=== PATIENT | male | born 1995 | race Caucasian/White ===

== ENCOUNTER 2017-06-12 13:50 | Emergency (ER) | payer BC ==
[2017-06-12] MEDS ORDERED: ONDANSETRON 4 MG/2 ML VIAL IVP ONE (14:03)
[2017-06-12] MEDS ORDERED: NS 1,000 ML IV ONE (14:03)
--- NOTE | 2017-06-12 14:06 | EDPHY ---
H & P Stated Complaint: ALLERGIC REACTION Time Seen by Provider: 06/12/17 13:59 HPI/ROS: CHIEF COMPLAINT: Allergic reaction HISTORY OF PRESENT ILLNESS: The patient is a 22-year-old man who comes to the emergency department and says that he is having an allergic reaction. He states that he is allergic to nuts but he is not sure which kind. He has never been tested. He states that he just knows because he has had this type of reaction before. About 15 min ago he ate some vegan macaroni and immediately felt nauseous and had aches and pain throughout his whole body. No shortness of breath. No urticaria. No swelling. He does state that his eyes started watering. He took 3 tablets of Benadryl about 10 min ago and his coworkers brought him to the emergency department. REVIEW OF SYSTEMS: Constitutional: denies: chills, fever, recent illness, recent injury EENTM: denies: blurred vision, double vision, nose congestion Respiratory: denies: cough, shortness of breath Cardiac: denies: chest pain, irregular heart rate, lightheadedness, palpitations Gastrointestinal/Abdominal: See HPI Genitourinary: denies: dysuria, frequency, hematuria, pain Musculoskeletal: See HPI Skin: denies: lesions, rash, jaundice, bruising Neurological: denies: headache, numbness, paresthesia, tingling, dizziness, weakness Hematologic/Lymphatic: denies: blood clots, easy bleeding, easy bruising Immunologic/allergic: denies: HIV/AIDS, transplant EXAM: GENERAL: Well-appearing, well-nourished HEAD: Atraumatic, normocephalic. EYES: Pupils equal round and reactive to light, extraocular movements intact, sclera anicteric, conjunctiva are normal. ENT: TMs normal, nares patent, oropharynx clear without exudates. Moist mucous membranes. NECK: Normal range of motion, supple without lymphadenopathy or JVD. LUNGS: Breath sounds clear to auscultation bilaterally and equal. No wheezes rales or rhonchi. HEART: Regular rate and rhythm without murmurs, rubs or gallops. ABDOMEN: Soft, nontender, normoactive bowel sounds. No guarding, no rebound. No masses appreciated. BACK: No CVA tenderness, no spinal tenderness, step-offs or deformities EXTREMITIES: Normal range of motion, no pitting or edema. No clubbing or cyanosis. NEUROLOGICAL: Cranial nerves II through XII grossly intact. Normal speech, normal gait. 5/5 strength, normal movement in all extremities, normal sensation PSYCH: Normal mood, normal affect. SKIN: Warm, dry, normal turgor, no visible rashes or lesions. Source: Patient Exam Limitations: No limitations - Personal History Current Tetanus/Diphtheria Vaccine: Yes - Medical/Surgical History Hx Asthma: No Hx Chronic Respiratory Disease: No Hx Diabetes: No Hx Cardiac Disease: No Hx Renal Disease: No Hx Cirrhosis: No Hx Alcoholism: No Hx HIV/AIDS: No Hx Splenectomy or Spleen Trauma: No Other PMH: tonsils, hand - Family History Significant Family History: No pertinent family hx - Social History Smoking Status: Never smoked Alcohol Use: Sober Drug Use: None Constitutional: Initial Vital Signs Heart Rate 80 06/12/17 13:54 Respiratory Rate 14 06/12/17 13:54 Blood Pressure 123/77 H 06/12/17 13:54 O2 Sat (%) 99 06/12/17 13:54 O2 Delivery Mode Room Air Allergies/Adverse Reactions: tree nut [Nuts] Allergy (Verified 06/12/17 13:53) Home Medications: Medication Instructions Recorded Adderall 10 MG (*) 06/12/17 Ondansetron Odt [Zofran Odt 4 mg 4 mg PO Q4 PRN #20 tab 06/12/17 (RX)] Medical Decision Making ED Course/Re-evaluation: The patient is well appearing other than stating that he has itchy eyes and has vague complaints stating that his whole body hurts and that he feels nauseous. I will hydrate him and treat with Zofran and re-evaluate. No signs of allergic reaction objectively. 2:18 p.m. patient states he is feeling completely better and would like to leave now. I encouraged him to stay so we can observe him a little longer. 3:00 p.m. the patient continues to do well and is eager to go. Differential Diagnosis: Partial list of the Differential diagnosis considered include but were not limited to; anxiety, nausea, allergic reaction and although unlikely based on the history and physical exam, I also considered influenza, sepsis seizure. I discussed these differential diagnoses and the plan with the patient as well as the usual and expected course. The patient understands that the diagnosis is provisional and that in medicine we are not always correct and that further workup is often warranted. Usual and customary warnings were given. All of the patient's questions were answered. The patient was instructed to return to the emergency department should the symptoms at all worsen or return, otherwise to followup with the physician as we discussed. - Data Points Medications Given: Discontinued Medications Sodium Chloride (Ns) 1,000 mls @ 0 mls/hr IV EDNOW ONE; Wide Open PRN Reason: Protocol Stop: 06/12/17 14:04 Last Admin: 06/12/17 14:09 Dose: 1,000 mls Ondansetron HCl (Zofran) 4 mg IVP EDNOW ONE Stop: 06/12/17 14:04 Last Admin: 06/12/17 14:09 Dose: 4 mg Departure - Departure Disposition: Home, Routine, Self-Care Clinical Impression: Nausea Condition: Fair Instructions: Acute Nausea and Vomiting (ED) Referrals: Clayton Lucero DO [Doctor of Osteopathy] - As per Instructions Prescriptions: Ondansetron Odt [Zofran Odt 4 mg (RX)] 4 mg PO Q4 PRN #20 tab PRN Reason: Nausea & Vomiting
[2017-06-12 14:46] VITALS: BP 145/95
== END 2017-06-12 14:40 | disposition home or self-care (01) ==
DX: R11.0 Nausea (principal); E86.9 Volume depletion, unspecified
CPT/HCPCS: 96374; J2405